=== PATIENT | female | born 1995 | race Caucasian/White ===

== ENCOUNTER 2024-01-23 21:02 | Emergency (ER) | payer OTHER, SELFPAY ==
[2024-01-23 21:18] VITALS: BP 132/74; PULSE 84; RESP 20; TEMP 36.7; O2SAT 99; BMI 46.9
--- NOTE | 2024-01-23 21:24 | ED.ABDPAIN ---
HPI - Abdominal Pain General Time Seen by Provider: 21:24 Date Seen: 01/23/24 Chief Complaint: Abdominal Pain Stated Complaint: Sharp pain midsection, 8 weeks prego. Time Seen by Provider: 01/23/24 21:23 Source: patient and RN notes reviewed Mode of arrival: ambulatory Limitations: no limitations History of Present Illness HPI narrative: This 29-year-old female that is about 7-8 weeks is coming in with epigastric pain. It started on Saturday or Saturday after eating pulled pork. It worsens with eating now. She has had morning sickness all day long through this but did vomit on Saturday. She had intensified pain earlier, felt warm with that. She does not think she has had fevers. She is noticing no change in stools, since the start of is only having a bowel movement about every 3 days. This is her 4th , has had 2 miscarriages and has had 1 live child. She still has her gallbladder. The pain is primarily in the epigastric area. She does have underlying heartburn but this pain is different. No vaginal discharge. No urinary symptoms. MD elicited complaint: abdominal pain Related Data Patient : Yes Previous Rx's Medication Instructions Recorded pantoprazole 40 mg tablet,delayed 40 mg PO DAILY #14 tabs 01/23/24 release Allergies Allergy/AdvReac Type Severity Reaction Status Date / Time No Known Drug Allergies Allergy Verified 01/23/24 21:20 Review of Systems Status of ROS Reports: 6 or more systems reviewed and unremarkable except as noted in History and below PFSH PFS Medical History Anxiety ?F41.9 - Anxiety disorder, unspecified (ICD-10) Depression ?F32.A - Depression, unspecified (ICD-10) Surgical History History of carpal tunnel release ?Z98.890 - Other specified postprocedural states (ICD-10) Social History Smoking Status: Never smoker Second hand tobacco smoke exposure: No How often do you have a drink containing alcohol: never AUDIT-C Alcohol total score: 0 Non-prescribed substance use: denies use Exam Const: Vital Signs, click to edit/add: Vital Signs - 24 hr 01/23/24 21:18 Temperature 98.0 F Pulse Rate [Right Pulse Oximeter] 84 Respiratory Rate 20 Blood Pressure [Ri ght Upper Arm] 132/74 Pulse Oximetry 99 Oxygen Delivery Me thod Room Air This 29-year-old female is alert, interactive, no apparent distress. Pupils equal round, conjugate gaze, sclera clear. Symmetrical facial function. Lungs clear, good air entry, no tachypnea. CV regular rate and rhythm, no murmur. Abdomen is obese but soft, bowel sounds present, do not feel any organomegaly. She has definite epigastric pain, not really any right upper quadrant pain. No true rebound or guarding. Skin without rash or jaundice. Documenting provider has reviewed patient's vital signs: yes Course Course ED Course: This is a 29-year-old female coming in with epigastric pain, started with eating and is worsening with eating. Certainly need to consider pancreatitis, need to look at her gallbladder to see if she has cholelithiasis. She is not febrile at this time, doubt cholecystitis. She certainly could have gastric issues but feels that her reflux feels much different. Will get full complement of labs. Will get a limited abdominal ultrasound to look at her gallbladder. If she needs abdominal imaging for pancreatitis, do not have MRI here overnight. If there is gallstone pancreatitis, this patient will need transfer. Reevaluation(s) Time of Reevaluation #1: 22:57 Reevaluation #1: Have reviewed the preliminary ultrasound findings being negative per the validation consultant. Patient knows that the radiologist still has to read, I will contact her if there is any discrepancy. She and I have reviewed that if she has ongoing issues, may need imaging of her abdomen but MRI would be recommended in if possible, she is early in the and would not recommend CT imaging unless it was absolutely necessary. She is quite stable, no evidence of any surgical abdomen at this time and do not feel we need imminent imaging. We did also review that the workup has not completely ruled out her gallbladder. Patients can develop dysfunctional gallbladder issues, unfortunately, with her she is really not a candidate for a HIDA scan. We will give her a dose of famotidine here as he only proton pump inhibitor is omeprazole and that I believe is category C verses the other PPIs being category B. we do not have an IV in her and thus cannot use IV Protonix at this point. Do not feels necessary to place an IV to just give her Protonix. I will send inappropriate oral proton pump inhibitor to start tomorrow, we will trial this and see if it does help her symptoms. Vital Signs Vital signs: Initial Vital Signs Temperature 98.0 F 01/23/24 21:18 Temperature Source Temporal Artery Scan 01/23/24 21:18 Pulse Rate 84 01/23/24 21:18 Respiratory Rate 20 01/23/24 21:18 Blood Pressure 132/74 01/23/24 21:18 Blood Pressure Mean 93 01/23/24 21:18 Blood Pressure Position Sitting 01/23/24 21:18 Pulse Oximetry 99 01/23/24 21:18 Oxygen Delivery Method Room Air 01/23/24 21:18 Vital Signs Temperature 98.0 F 01/23/24 21:18 Pulse Rate 84 01/23/24 21:18 Respiratory Rate 20 01/23/24 21:18 Blood Pressure 132/74 01/23/24 21:18 Pulse Oximetry 99 01/23/24 21:18 Oxygen Delivery Method Room Air 01/23/24 21:18 Temperature 98.0 F 01/23/24 21:18 Pulse Rate 84 01/23/24 21:18 Respiratory Rate 20 01/23/24 21:18 Blood Pressure 132/74 01/23/24 21:18 Pulse Oximetry 99 01/23/24 21:18 Oxygen Delivery Method Room Air 01/23/24 21:18 MDM - Abdominal Pain Lab Data Attestation: I reviewed the patient's lab results. Labs: Lab Results 01/23/24 01/23/24 01/23/24 Range/Units 21:23 21:40 21:40 WBC 13.40 H (4.50-11.00) K/uL RBC 4.35 (4.00-5.20) m/uL Hgb 12.5 (12.0-16.0) gm/dL Hct 38.0 (33.0-51.0) % MCV 87 (80-100) fL MCH 29 (26-34) pg MCHC 33 (32-36) gm/dL RDW Coeff of Veronica 14.3 (11.5-15.5) % Plt Count 304 (140-440) K/uL Neut % (Auto) 64.3 (42.0-72.0) % Lymph % (Auto) 26.4 (20-44) % [place] % (Auto) 6.6 (0.0-11.0) % Eos % (Auto) 2.2 (0.0-7.0) % Baso % (Auto) 0.2 (0.0-3.0) % Neut # (Auto) 8.60 H (1.7-7.0) K/uL Lymph # (Auto) 3.50 H (0.90-2.90) K/uL [place] # (Auto) 0.90 (0.00-0.90) K/UL Eos # (Auto) 0.30 (0.00-0.50) K/uL Baso # (Auto) 0.00 (0.00-0.30) K/uL Abs Immat Gran (auto) 0.00 (0.00-0.30) K/uL Imm/Tot Granulo (auto) 0.3 % Sodium 135 (135-149) mmol/L Potassium 3.7 (3.6-5.1) mmol/L Chloride 104 (96-114) mmol/L Carbon Dioxide 25 (20-32) mmol/L Anion Gap 6 L (7-15) mEq/L BUN 11 (5-24) mg/dL Creatinine 0.6 (0.5-1.5) mg/dL Estimated Creat Clear 101.16 Estimated GFR 126 ml/min Glucose 98 (60-115) mg/dL Calcium 9.7 (8.4-10.6) mg/dL Total Bilirubin 0.3 (0.1-1.5) mg/dL Direct Bilirubin 0.1 (0.0-0.5) mg/dL AST 21 (12-35) U/L ALT 31 (4-35) U/L Alkaline Phosphatase 61 (40-150) U/L C-Reactive Protein 1.3 H (0.5-1.0) mg/dL Total Protein 7.6 (6.0-8.3) g/dL Albumin 4.3 (3.3-5.0) g/dL Lipase 57 Cancelled (23-300) U/L Urine Color Yellow (Yellow) Urine Appearance Clear (Clear) Urine pH 6.0 (5.0-8.5) Ur Specific [place] >= 1.030 (1.000-1.030) Urine Protein Negative (Negative) Urine Glucose (UA) Negative (Negative) Urine Ketones Negative (Negative) Urine Blood Negative (Negative) Urine Nitrite Negative (Negative) Urine Bilirubin Negative (Negative) Urine Urobilinogen 0.2 (0.2-1.0) Ur Leukocyte Esterase Negative (Negative) Urine RBC 0-2 (0-2) Urine WBC 5-10 A (0-5) Ur Squamous Epith Cells Few (None-Few) Urine Bacteria Moderate A (None) Urine HCG, Qual POSITIVE H (Negative) Imaging Data US - abdomen: Attestation: I have reviewed the pertinent imaging results. Radiologist's impression: Patient: DEE HI Facility:?[facility] Patient ID:?[id number] Site Patient ID:?[id number]. Site :?1995 Study:?US Abdomen RU-01/23/2024 10:13:52 PM Ordering Physician:?VIVIANA VILLELA Final Report: INDICATION: Epigastric pain, worse with eating, . TECHNIQUE: Ultrasound abdomen limited. Sonographic images of the right upper quadrant were obtained using fortune-scale and color Doppler images. COMPARISON: None. FINDINGS: Liver: Normal in size and echotexture. No suspicious masses. No intrahepatic biliary dilatation. Gallbladder: No stones or sludge. Normal wall thickness. No pericholecystic fluid. Negative sonographic Montero`s sign. Common bile duct: 5 mm. Pancreas: Unremarkable. Right kidney: Normal in size. Normal echotexture and cortex. No suspicious masses, stones, or hydronephrosis. Vasculature: Proximal abdominal aorta and IVC are unremarkable. IMPRESSION: Unremarkable right upper quadrant ultrasound. Dictated by Harsh Mckay MD @ 01/23/2024 10:52:38 PM (Electronic Signature) Discharge Plan Discharge Clinical Impression: Acute epigastric pain Patient Disposition: Home, Self-Care Condition: Stable Instructions: GERD (Gastroesophageal Reflux Disease) (ED), Epigastric Pain (ED) Additional Instructions: Start Protonix (see pantoprazole) tomorrow and take as prescribed. This should help if this is coming from irritation of the stomach such as gastritis, possible ulcer disease or severe heartburn symptoms. If your abdominal pain is worsening, develops vomiting or fever with the abdominal pain, do need to be re-evaluated. I recommend that you are seen within the next week by her primary care provider for recheck, keep your upcoming OB appointment on February 10. Activity Level: Activity as Tolerated Prescriptions: New pantoprazole 40 mg tablet,delayed release (DR/EC) 40 mg PO DAILY Qty: 14 0RF Follow Up/Referrals: Meri Burrows MD [Primary Care Provider] - Stand Alone Forms: [email or web address] Info Instructions
[2024-01-23 21:30] LABS: Appearance Urine Clear (Clear); Bilirubin Urine Negative (Negative); Blood Urine Negative (Negative); Color Urine Yellow (Yellow); Glucose Urine Negative (Negative); Ketones Urine Negative (Negative); Leukocyte Esterase Urine Negative (Negative); Nitrite Urine Negative (Negative); Protein Urine Negative (Negative); Specific Gravity Urine >= 1.030 (1.000-1.030); Urobilinogen Urine 0.2 (0.2-1.0)
[2024-01-23 21:32] LABS: Ur HCG Qualitative* POSITIVE (Negative)
--- NOTE | 2024-01-23 21:37 | US_ITS ---
Patient: DEE HI Facility:?[facility] Patient ID:?[id number] Site Patient ID:?[id number]. Site :?1995 Study:?US-Abdomen RUQ-01/23/2024 10:13:52 PM Ordering Physician:CHANTALE VILLELA Final Report: INDICATION: Epigastric pain, worse with eating, . TECHNIQUE: Ultrasound abdomen limited. Sonographic images of the right upper quadrant were obtained using fortune-scale and color Doppler images. COMPARISON: None. FINDINGS: Liver: Normal in size and echotexture. No suspicious masses. No intrahepatic biliary dilatation. Gallbladder: No stones or sludge. Normal wall thickness. No pericholecystic fluid. Negative sonographic Montero`s sign. Common bile duct: 5 mm. Pancreas: Unremarkable. Right kidney: Normal in size. Normal echotexture and cortex. No suspicious masses, stones, or hydronephrosis. Vasculature: Proximal abdominal aorta and IVC are unremarkable. IMPRESSION: Unremarkable right upper quadrant ultrasound. Dictated by Harsh Mckay MD @ 01/23/2024 10:52:38 PM Signed by:?Harsh Mckay MD @01/23/2024 10:52:38 PM (Electronic Signature)
[2024-01-23 21:51] LABS: RBC Urine 0-2 (0-2)
[2024-01-23 21:52] LABS: Bacteria Urine Moderate; Squamous Epithelial Cell Urine Few (None-Few)
[2024-01-23 22:12] LABS: Basophils Percent Auto 0.2 % (0.0-3.0); Eosinophils Percent Auto 2.2 % (0.0-7.0); Hemoglobin* 12.5 gm/dL (12.0-16.0); Immature Granulocytes Pct Auto 0.3 %; Lymphocytes Percent Auto 26.4 % (20-44); Mean Corpuscular HGB Conc 33 gm/dL (32-36); Mean Corpuscular Hemoglobin 29 pg (26-34); Mean Corpuscular Volume 87 fL (80-100); Monocytes Percent Auto 6.6 % (0.0-11.0); Neutrophils Percent Auto 64.3 % (42.0-72.0); Platelet Count* 304 K/uL (140-440); RDW Coefficient of Variation % 14.3 % (11.5-15.5); Red Blood Count 4.35 m/uL (4.00-5.20)
[2024-01-23 22:21] LABS: Slide Review Reflex No
[2024-01-23 22:31] LABS: Albumin* 4.3 g/dL (3.3-5.0); Chloride* 104 mmol/L (96-114); Potassium* 3.7 mmol/L (3.6-5.1); Sodium* 135 mmol/L (135-149)
[2024-01-23 22:33] LABS: Creatinine* 0.6 mg/dL (0.5-1.5); Est. Creatinine Clearance* 101.16; Estimated Glomerular Filt Rate 126 ml/min
[2024-01-23 22:34] LABS: Alkaline Phosphatase* 61 U/L (40-150); Anion Gap 6 mEq/L (7-15); Aspartate Amino Transferase* 21 U/L (12-35); Bilirubin Direct* 0.1 mg/dL (0.0-0.5); Bilirubin Total* 0.3 mg/dL (0.1-1.5); Blood Urea Nitrogen* 11 mg/dL (5-24); Carbon Dioxide* 25 mmol/L (20-32); Glucose* 98 mg/dL (60-115); Lipase* 57 U/L (23-300); Total Protein* 7.6 g/dL (6.0-8.3)
[2024-01-23 22:35] LABS: Alanine Aminotransferase* 31 U/L (4-35); Calcium* 9.7 mg/dL (8.4-10.6)
[2024-01-23 22:37] LABS: C Reactive Protein* 1.3 mg/dL (0.5-1.0)
[2024-01-23] MEDS: FAMOTIDINE 20 MG TABLET PO (23:04)
== END 2024-01-23 23:11 | disposition home or self-care (01) ==
PROVIDERS: Emergency Provider Family Medicine; PCP Family Medicine
DX: R10.13 Epigastric pain (principal); Z3A.08 8 weeks gestation of pregnancy
CPT/HCPCS: 36415; 76705; 80053; 81001; 81025; 82248; 83690; 85025; 86140; 87086; 99284; A9270

== ENCOUNTER 2024-02-13 08:29 | Day surgery (SDC) | payer OTHER, SELFPAY ==
[2024-02-13 08:40] VITALS: BMI 46.0
[2024-02-13 09:00] VITALS: BP 118/83; PULSE 87; RESP 16; TEMP 36.7; O2SAT 98
[2024-02-13] MEDS: LACTATED RINGERS 1000 ML 1,000 ML 100 ML IV (09:03)
[2024-02-13] MEDS: DOXYCYCLINE HYCLATE 100 MG 200 MG PO (09:03)
[2024-02-13] MEDS: SODIUM CHLORIDE 0.9 % (FLUSH) 10 ML SYRINGE IVF (09:03)
--- NOTE | 2024-02-13 09:04 | SUR.PREOP ---
Dr. Sheldon here to see patient. [id number]
[2024-02-13] MEDS: LIDOCAINE 1% MDV 20 ML INJECTION (09:49)
[2024-02-13 10:20] VITALS: BP 118/86; PULSE 88; RESP 16; TEMP 36.4; O2SAT 96
--- NOTE | 2024-02-13 10:20 | W.ANESCHARGE ---
Anesthesia Charges Start Date/Time Anesthesia Start Date: 02/13/24 Anesthesia Start Time: 09:19 Stop Date/Time Anesthesia Stop Date: 02/13/24 Anesthesia Stop Time: 10:16
[2024-02-13 10:35] VITALS: BP 129/81; PULSE 77; RESP 16; O2SAT 98
[2024-02-13 10:51] VITALS: BP 105/54; PULSE 83; RESP 16; TEMP 36.9; O2SAT 97
[2024-02-13 11:20] VITALS: BP 124/75; PULSE 80; RESP 16; O2SAT 98
--- NOTE | 2024-02-13 13:54 | W.PM.GYNPROC ---
Procedure Note Date of procedure: 02/13/24 Will [facility] bill your pro fee for this procedure?: Yes Pre-op diagnosis: Missed at 8 weeks by CRL Post-op diagnosis: Same Procedure: Suction uterine curettage under ultrasound guidance Anesthesia: MAC and local Complications: None Surgeon: Janine Sheldon MD Lead Nitrate Processor: Lisa Jha Estimated blood loss (mL): 15 IV fluids (mL): 800 Urine Output (mL): 200 Pathology: specimen obtained, sent to pathology (products of conception. Confirmed specimen name and intention to send for chromosome microarray and surgical pathology at time of postoperative debrief. ) Condition: stable Disposition: same day Findings: 1. Exam under anesthesia revealed a mobile, anteverted uterus without any palpable adnexal masses. Cervix and vagina were normal in appearance. 2. Moderate amount of products of conception obtained with suction curettage. Procedure Description: Patient was taken to the operating with IV running. She had received a single oral dose of doxycycline in preoperative prophylaxis. She was placed in dorsal lithotomy position. Monitored anesthesia care was administered. She was prepped and draped in the usual sterile fashion. Her bladder was straight catheterized for the above-noted amount. Exam under anesthesia was performed for the above-noted findings. Speculum was inserted. Cervix was grasped along its anterior lip with a single-tooth tenaculum. Paracervical block was performed with a total of 10 mL of 1% lidocaine. The cervix was serially dilated to 25 [place]. A size 8 rigid suction cannula was then passed through the cervix to the uterine fundus. Suction was applied, and the suction cannula was withdrawn along the path of insertion. This was repeated several more times, until there was no obvious return of products of conception. Ultrasound performed during the last pass of the suction curette revealed a uniform appearance to endometrium and appropriate placement of the curette at the uterine fundus. Procedure was deemed complete. The tenaculum was removed from the anterior lip the cervix, and hemostasis was noted. The speculum was then removed from the vagina. Patient tolerated procedure well and was taken recovery area in stable condition.
== END 2024-02-13 11:37 | disposition home or self-care (01) ==
PROVIDERS: PCP Family Medicine; Visit Provider Obstetrics & Gynecology
PROC: (CPT 59820; principal; 2024-02-13 08:30)
DX: O02.1 Missed abortion (principal)
CPT/HCPCS: 59820; 00940; 36415; 76998; 86850; 86900; 86901; 88233; 88305; A9270; J1100; J2250; J2405; J2704; J3010; J3490; J7120

== ENCOUNTER 2024-02-28 14:28 | Outpatient (CLI) | payer OTHER, SELFPAY | END 2024-02-28 14:29 | disposition home or self-care (01) | PROVIDERS: PCP Family Medicine; Visit Provider Obstetrics & Gynecology | DX: Z01.818 Encounter for other preprocedural examination (principal); N96 Recurrent pregnancy loss; Z86.39 Personal history of other endocrine, nutritional and metabolic disease | CPT/HCPCS: 82306; 83520; 84439; 84443; 85520; 85598; 85610; 85613; 85670; 85730; 86146; 86147; 86376; 88262 ==

== ENCOUNTER 2024-04-08 12:52 | Outpatient (CLI) | payer OTHER, SELFPAY ==
--- NOTE | 2024-04-08 13:00 | CRLHL7_ITS ---
For Patients: As a result of the Century Cures Act, medical imaging exams and procedure reports are released immediately into your electronic medical record. You may view this report before your referring provider. If you have questions, please contact your health care provider. INDICATION: Recurrent loss COMPARISON: 01/23/2024 TECHNIQUE: 2D fortune scale and color Doppler images were acquired of the pelvis using a transabdominal and transvaginal approach. FINDINGS: Sonographic images demonstrate a normal size and smooth outer contour of the uterus. Uterus measures 10.2 cm in length by 4.5 cm in AP diameter by 5.3 cm in transverse dimension. The myometrium has a normal uniform echotexture. The endometrial lining appears heterogeneous and measures 8 mm in composite thickness. The right ovary measures 3.3 x 1.8 x 3.7 cm in size and the left ovary measures 3.6 x 2.4 x 3.0 cm. The ovaries demonstrate normal arterial and venous blood flow on color Doppler analysis. There are no suspicious fluid collections within the cul-de-sac. IMPRESSION: Heterogeneous endometrium measuring 8 millimeters. No uterine fibroid. Dictated by Jim Erazo MD @ 04/08/2024 7:06:03 PM (Electronically Signed)
== END 2024-04-08 12:53 | disposition home or self-care (01) ==
PROVIDERS: PCP Family Medicine; Visit Provider Obstetrics & Gynecology
DX: N96 Recurrent pregnancy loss (principal); R93.89 Abnormal findings on diagnostic imaging of other specified body structures
CPT/HCPCS: 76830; 76856

== ENCOUNTER 2024-04-28 09:54 | Outpatient (CLI) | payer OTHER, SELFPAY ==
--- NOTE | 2024-04-28 11:13 | W.PM.GYNPROC ---
Procedure Note Time Seen by Provider: 11:13 Date of procedure: 04/28/24 Will [facility] bill your pro fee for this procedure?: Yes Pre-op diagnosis: Recurrent loss Post-op diagnosis: Recurrent loss Possible structural uterine anomaly Procedure: Sonohysterography Anesthesia: none Complications: None Surgeon: Cullen Oneal MD Estimated blood loss (mL): 0 IV fluids (mL): 0 Urine Output (mL): 0 Pathology: none sent Condition: stable Disposition: same day Findings: Endometrial cavity assessment notable for possible structural anomaly (?polyp) posteriorly Procedure Description: PROCEDURE: After obtaining verbal consent, the patient was placed in the dorsal lithotomy position on the ultrasound table. She had previously completed a pelvic ultrasound with sonographers. An open-sided bivalve speculum was introduced into the vagina and cervix was difficult to visualize. Bimanual exam performed to better assess cervical location. Speculum was then reintroduced and posterior cervical margin was visualized anteriorly, where posterior fornix traction with a proctoswab allowed it to be visualized in its entirety. The cervix and vagina were then prepped with Betadine. The anterior lip of the cervix was grasped with a single-tooth tenaculum for traction. A balloon tipped double-lumen catheter was then gently inserted through the cervical opening into the uterine cavity to the level of the fundus. The balloon was insufflated with 3 mL of air and pulled back to level of internal os. The tenaculum and speculum were removed. Transvaginal US probe was introduced. Endometrial lining was identified in the longitudinal plane, where 5mL of saline was introduced. On initial assessment, the endometrial cavity was noted to be a normal size, shape and contour. Images and video were taken in both longitudinal and transverse planes. The balloon was then taken down and an additional 5mL of saline was introduced. On this inspection, there was note of a possible structural anomaly along the posterior uterine wall. Doppler flow was negative. No prior fibroid was noted on her pelvic US on 04/08/24. We discussed potential implications of this finding including consideration for hysteroscopy and polypectomy/myomectomy as needed with her primary provider. Formal radiology read is pending. The US probe and catheter was subsequently removed. Speculum reinserted where cervix and tenaculum sites were hemostatic. Procedure was uncomplicated and well tolerated. [facility] was previously scheduled for in 2 weeks.
== END 2024-04-28 09:55 | disposition home or self-care (01) ==
LOC: US 09:55
PROVIDERS: PCP Family Medicine; Visit Provider Obstetrics & Gynecology
DX: N96 Recurrent pregnancy loss (principal)
CPT/HCPCS: 58340; 76831; A4649

== ENCOUNTER 2024-05-15 12:06 | Outpatient (CLI) | payer OTHER, SELFPAY | END 2024-05-15 12:07 | disposition home or self-care (01) | LOC: NFLDREF 12:07 | PROVIDERS: PCP Family Medicine; Visit Provider Obstetrics & Gynecology | DX: N91.2 Amenorrhea, unspecified (principal) | CPT/HCPCS: 84702 ==

== ENCOUNTER 2024-05-28 07:10 | Day surgery (SDC) | payer OTHER, SELFPAY ==
[2024-05-28] MEDS: LACTATED RINGERS 1000 ML 1,000 ML 100 ML IV (07:15)
[2024-05-28 07:33] VITALS: BP 127/66; PULSE 75; RESP 16; TEMP 36.9; O2SAT 98
[2024-05-28 07:38] VITALS: BMI 48.2
[2024-05-28 07:43] LABS: Ur HCG Qualitative* Negative (Negative)
[2024-05-28] MEDS: SODIUM CHLORIDE 0.9 % (FLUSH) 10 ML SYRINGE IVF (07:52)
--- NOTE | 2024-05-28 08:07 | W.PM.H&PU ---
History & Physical Update History & Physical Update H&P Reviewed and patient assessed: No changes noted
[2024-05-28] MEDS: LIDOCAINE 1% MDV 20 ML INJECTION (08:32)
--- NOTE | 2024-05-28 08:54 | P.GYNPRC_ITS ---
Procedure Note Date of procedure: 05/28/24 Will [facility] bill your pro fee for this procedure?: Yes Pre-op diagnosis: Suspected endometrial polyp Recurrent loss Post-op diagnosis: Diffusely thickened endometrium Recurrent loss Procedure: Hysteroscopy with visual dilation and curettage Anesthesia: MAC and local Complications: None Surgeon: Alfreda Espinoza Estimated blood loss (mL): 5 IV fluids (mL): 700 Urine Output (mL): 50 Pathology: specimen obtained, sent to pathology (Endometrial curettings.) Condition: stable Disposition: same day Findings: 1. Upon pelvic exam under anesthesia, the cervix and vagina were normal in appearance. Uterus was mobile and anteverted, of normal size and texture. There were no palpable adnexal masses. Exam was limited by patient habitus. 2. Upon hysteroscopy, survey of the endocervix was normal. Survey of the e ndometrial cavity revealed diffusely thickened endometrium which was slightly irregular posteriorly. The shape of the endometrial cavity was normal, with normal appearance of bilateral tubal ostia. Fluid deficit: 70 mL saline Procedure Description: Procedure in detail: Patient was taken to the operating room with IV running. She was positioned in dorsal lithotomy position with her legs fully supported in Yellofin stirrups. Monitored anesthesia care was administered. She was prepped and draped in the usual sterile fashion. Exam under anesthesia was performed for the above-noted findings. Speculum was inserted. Cervix visualized and grasped along the anterior lip with a single-tooth tenaculum. Paracervical block performed for total of 16 mL of 1% lidocaine. Cervix was serially dilated to accommodate the TRUCLEAR hysteroscope. This was assembled with saline inflow and outflow in place. The line was flushed of bubbles. The hysteroscope was advanced through the cervix into the endometrial cavity for the above noted findings. The tissue morcellator was then inserted through the operating channel. Window lock was performed. Under direct visualization, the endometrial cavity was circumferentially curetted with the tissue morcellator. The hysteroscope and morcellator were then removed from the uterus. Tenaculum was removed from the anterior lip of cervix. Hemostasis was noted. Patient tolerated procedure well. She was taken to recovery area in stable condition. I carried out postoperative debrief, verbally confirming my desire to send endometrial curettings to pathology for analysis.
--- NOTE | 2024-05-28 08:56 | SUR.OPER ---
DEFICIT= 70ML
[2024-05-28 08:58] VITALS: BP 127/54; PULSE 78; RESP 16; TEMP 36.5; O2SAT 98
--- NOTE | 2024-05-28 08:58 | W.ANESCHARGE ---
Anesthesia Charges Start Date/Time Anesthesia Start Date: 05/28/24 Anesthesia Start Time: 08:15 Stop Date/Time Anesthesia Stop Date: 05/28/24 Anesthesia Stop Time: 08:58
[2024-05-28] MEDS: ACETAMINOPHEN 500 MG TABLET 1000 MG PO (09:13)
[2024-05-28 09:15] VITALS: BP 154/90; PULSE 77; RESP 16; O2SAT 98
[2024-05-28 09:29] VITALS: BP 115/55; PULSE 78; RESP 16; TEMP 36.9; O2SAT 98
--- NOTE | 2024-05-28 11:40 | W.ANESCHARGE ---
Anesthesia Charges Start Date/Time Anesthesia Start Date: 05/28/24 Anesthesia Start Time: 08:15 Stop Date/Time Anesthesia Stop Date: 05/28/24 Anesthesia Stop Time: 08:58
== END 2024-05-28 09:47 | disposition home or self-care (01) ==
LOC: OR 07:11
PROVIDERS: PCP Family Medicine; Visit Provider Obstetrics & Gynecology
PROC: 0UDB8ZZ Extraction of Endometrium, Via Natural or Artificial Opening Endoscopic (ICD-10-PCS; CPT 58558; principal; 2024-05-28 08:15)
DX: R93.89 Abnormal findings on diagnostic imaging of other specified body structures (principal); N96 Recurrent pregnancy loss; E66.09 Other obesity due to excess calories; Z68.42 Body mass index [BMI] 45.0-49.9, adult
CPT/HCPCS: 58558; 00952; 36415; 81025; 86850; 86900; 86901; 88305; A9270; C1782; J1100; J1885; J2250; J2405; J2704; J3010; J7120